=== PATIENT | male | born 1990 | race Two or more races ===

== ENCOUNTER 2025-02-23 06:56 | Observation (INO) | payer OTHER ==
[2025-02-23 07:00] VITALS: BMI 30.4
[2025-02-23] MEDS ORDERED: KETOROLAC TROMETHAMINE 15 MG/ML VIAL ONE ×2 (07:43→10:46)
[2025-02-23] MEDS ORDERED: ACETAMINOPHEN INJECTION 100 ML ONE (07:43)
[2025-02-23] MEDS: ACETAMINOPHEN 1000 MG/100 ML BAG IVPB ONE (07:49)
[2025-02-23] MEDS: KETOROLAC TROMETHAMINE 15 MG/ML VIAL IVPUSH ONE ×2 (07:49→10:55)
[2025-02-23] MEDS ORDERED: ONDANSETRON 4 MG/2 ML VIAL ONE (08:01)
[2025-02-23] MEDS: LACTATED RINGERS SOLUTION 1000 ML INFUS.BAG IV ONE ×2 (08:07→09:52)
[2025-02-23] MEDS: ONDANSETRON 4 MG/2 ML VIAL IVPUSH ONE (08:07)
[2025-02-23 08:13] LABS: ABSOLUTE IMMATURE GRANULOCYTES 0.04 x10^3/uL (0.0-0.031); BASOPHILS # 0.04 x10^3/uL (0.01-0.08); EOSINOPHIL % 1.8 % (0.8-7.0); EOSINOPHILS # 0.14 x10^3/uL (0.04-0.54); MCHC 32.6 g/dl (32.3-36.5); MEAN CELL VOLUME 93.2 fl (79.0-92.2); MEAN PLT VOLUME 9.0 fl (9.4-12.4); MONOCYTE # 0.55 x10^3/uL (0.30-0.82); MONOCYTE % 7.0 % (5.3-12.2); RDW 12.7 % (12.0-15.6)
[2025-02-23] MEDS ORDERED: HYDROmorphone HCL CARPU-JECT 2 MG/1 ML DISP.SYRIN ONE (08:31)
[2025-02-23 08:32] LABS: INR 0.92 (0.83-1.09); PROTHROMBIN TIME (PATIENT) 10.0 SEC (9.7-13.0)
[2025-02-23 08:35] LABS: ACTIVATED PTT 25.7 SECONDS (25.2-36.5); CO2 26.0 mmol/L (21-32); GLUCOSE,RANDOM 113.0 mg/dL (74-106)
[2025-02-23 08:38] LABS: CREATININE 0.9 mg/dL (0.55-1.3); SGOT/AST 34.0 U/L (15-37); SGPT/ALT 130.0 U/L (13-61)
[2025-02-23 08:40] LABS: TOT PROT 7.4 g/dl (6.4-8.2)
[2025-02-23 08:41] LABS: ALK PHOS 148.0 U/L (45-117)
[2025-02-23] MEDS ORDERED: TAMSULOSIN HCL 0.4 MG CAP ONE (09:44)
[2025-02-23] MEDS: TAMSULOSIN HCL 0.4 MG CAP PO ONE (09:52)
[2025-02-23 10:28] LABS: EPI CELLS 10 /uL (0-25.1); HYALINE CASTS 1 /uL (0-3.1); URINE APPEARANCE CLEAR; URINE BACTERIA 7 /uL (0-1359); URINE BILIRUBIN NEGATIVE (NEGATIVE); URINE COLOR YELLOW; URINE GLUCOSE (UA) NEGATIVE (NEGATIVE); URINE KETONE NEGATIVE (NEGATIVE); URINE LEUK ESTERASE TRACE (NEGATIVE); URINE NITRITE NEGATIVE (NEGATIVE); URINE PROTEIN NEGATIVE (NEGATIVE); URINE RBC 668 /uL (0-23.9); URINE UROBILINOGEN 0.2 mg/dL (0.2-1.0); URINE WBC 13 /uL (0-25.8)
[2025-02-23] MEDS ORDERED: ONDANSETRON 4 MG/2 ML VIAL IVPUSH PRN (11:47)
[2025-02-23] MEDS: LACTATED RINGERS SOLUTION 1,000 ML/1,000 ML INFUS.BAG IV SCH (12:27)
[2025-02-23] MEDS: ACETAMINOPHEN 500 MG TABLET (FP) PO PRN (21:04)
[2025-02-23] MEDS: KETOROLAC TROMETHAMINE 15 MG/ML VIAL IVPUSH PRN (21:08)
[2025-02-23 21:56] LABS: HCV DIAGNOSTIC IN-HOUSE W/RFLX NON-REACTIVE (NONREACTIVE)
[2025-02-23 22:14] LABS: HIV INTERPRETATION NEGATIVE (NEGATIVE)
[2025-02-24] MEDS: TAMSULOSIN HCL 0.4 MG CAP PO SCH (10:19)
[2025-02-24 10:28] LABS: ABSOLUTE IMMATURE GRANULOCYTES 0.04 x10^3/uL (0.0-0.031); BASOPHILS # 0.04 x10^3/uL (0.01-0.08); EOSINOPHIL % 1.4 % (0.8-7.0); EOSINOPHILS # 0.13 x10^3/uL (0.04-0.54); MCHC 33.0 g/dl (32.3-36.5); MEAN CELL VOLUME 92.5 fl (79.0-92.2); MEAN PLT VOLUME 9.0 fl (9.4-12.4); MONOCYTE # 0.65 x10^3/uL (0.30-0.82); MONOCYTE % 7.1 % (5.3-12.2); RDW 12.7 % (12.0-15.6)
[2025-02-24 11:00] LABS: CO2 30.0 mmol/L (21-32); GLUCOSE,RANDOM 117.0 mg/dL (74-106)
[2025-02-24 11:03] LABS: CREATININE 0.8 mg/dL (0.55-1.3)
[2025-02-24 12:24] LABS: SGPT/ALT 91.0 U/L (13-61)
[2025-02-24 12:25] LABS: SGOT/AST 28.0 U/L (15-37)
[2025-02-24 12:26] LABS: TOT PROT 6.6 g/dl (6.4-8.2)
[2025-02-24 12:27] LABS: ALK PHOS 134.0 U/L (45-117)
[2025-02-24 13:28] VITALS: BP 125/77; PULSE 55; RESP 17; TEMP 97.8
== END 2025-02-24 13:34 | disposition home or self-care (01) ==
LOC: JER 06:56 → JERBED 10:49 → J5S 17:35
PROVIDERS: ADMIT Internal Medicine; ATTEND Internal Medicine
PROC: 3E033NZ Introduction of Analgesics, Hypnotics, Sedatives into Peripheral Vein, Percutaneous Approach (ICD-10-PCS; principal; 2025-02-23)
PROC: 3E0333Z Introduction of Anti-inflammatory into Peripheral Vein, Percutaneous Approach (ICD-10-PCS; 2025-02-23)
PROC: 3E0337Z Introduction of Electrolytic and Water Balance Substance into Peripheral Vein, Percutaneous Approach (ICD-10-PCS; 2025-02-23)
DX: N20.1 Calculus of ureter (principal); R94.5 Abnormal results of liver function studies; R10.31 Right lower quadrant pain
CPT/HCPCS: 36415; 74177-TC; 80048; 80053; 80076; 81003; 83605; 83690; 85025; 85610; 85730; 86803; 86850; 86900; 86901; 87086; 87389; 99285-25; G0378; Q9967